=== PATIENT | female | born 1960 | race Caucasian/White ===

== ENCOUNTER 2017-01-14 13:50 | Emergency (ER) | payer OTHER ==
[~2017-01-14] VITALS: Ht 152.4 cm; Wt 77.3 kg
[2017-01-14 13:53] VITALS: BP 145/75; TEMP 97.8
[2017-01-14] MEDS ORDERED: SOY PO (14:00)
[2017-01-14] MEDS ORDERED: MULTI VITAMINS1 TAB PO (14:00)
[2017-01-14] MEDS ORDERED: VITAMIN C500 MG PO (14:00)
[2017-01-14 14:57] LABS: PH 5 (5-8); SQUAMOUS EPITHELIAL 0-2 /hpf; URINE BACTERIA None Seen /hpf; URINE BILIRUBIN Negative (NEGATIVE); URINE BLOOD Negative (NEGATIVE); URINE COLOR Yellow; URINE GLUCOSE Negative (NEGATIVE); URINE KETONE Trace (NEGATIVE); URINE UROBILINOGEN Negative (NEGATIVE); URINE WBC 20-50 /hpf
[2017-01-14 14:58] LABS: URINE APPEARANCE Hazy
[2017-01-14] MEDS ORDERED: CEFTIN500 MG PO (15:13)
[2017-01-14 15:38] VITALS: PULSE 59
== END 2017-01-14 15:39 | disposition home or self-care (01) ==
LOC: COL.ER 13:50
PROVIDERS: Physician Assistant
DX: N30.91 Cystitis, unspecified with hematuria (principal)